=== PATIENT | female | born 1990 | race Caucasian/White ===

== ENCOUNTER 2017-03-16 11:08 | Emergency (ER) | payer OTHER ==
[~2017-03-16] VITALS: Ht 165.1 cm; Wt 117.9 kg
[2017-03-16] MEDS ORDERED: PREDNISONE 20 M20 M1 PO (12:37)
== END 2017-03-16 12:54 | disposition home or self-care (01) ==
LOC: ER 11:08
DX: J20.8 Acute bronchitis due to other specified organisms (principal); F17.210 Nicotine dependence, cigarettes, uncomplicated